=== PATIENT | male | born 1985 | race Caucasian/White ===

== ENCOUNTER 2018-05-17 15:17 | Emergency (ER) | payer SELFPAY ==
[~2018-05-17] VITALS: Ht 165.1 cm; Wt 81.8 kg
[2018-05-17 15:23] VITALS: Ht 165.1 cm; Wt 81.8 kg
[2018-05-17] MEDS ORDERED: ONDANSETRON 4 MG INJ ONE (15:52)
[2018-05-17] MEDS ORDERED: SOD CHLORIDE 0.9% 1,000 ML IV STA (15:55)
[2018-05-17] MEDS ORDERED: ONDANSETRON 4 MG INJ IV STA (15:55)
--- NOTE | 2018-05-17 17:20 | ERD ---
ER Documentation Chief Complaint Chief Complaint new onset seizure; witnessed ~1 minute HPI 33-year-old male brought in by ambulance from his work after he had a witnessed 1 minute episode of seizure-like activity. Patient states that he does remember feeling lightheaded and went to the restroom at work. When he walked out, he st arted to pass out and was reportedly assisted to the ground. He had seizure- like activity lasting about 1 minute after which he was confused and seemed to be postictal per report. Patient is currently able to answer questions and states that he has no history of seizures. He does complain of jaw pain currently and states that he has had dislocation of his jaw in the past due to yawning. Currently complains of bilateral jaw pain so history is somewhat limited. He denies any headache, vision disturbance, focal weakness or numbness, recent illness, fevers or chills. He does complain of nausea with vomiting at this time. ROS All systems reviewed and are negative except as per history of present illness. Allergies Allergies: Coded Allergies: No Known Allergy (Unverified , 05/17/18) PMhx/Soc Medical and Surgical Hx: pt denies Medical Hx, pt denies Surgical Hx History of Surgery: No Anesthesia Reaction: No Hx Neurological Disorder: No Hx Respiratory Disorders: No Hx Cardiac Disorders: No Hx Psychiatric Problems: No Hx Miscellaneous Medical Probl: No Hx Alcohol Use: Yes (2-3x wk) Hx Substance Use: Yes (marijuana) Hx Tobacco Use: No Smoking Status: Never smoker FmHx No history of seizure disorder in the family Family History: No diabetes Physical Exam Vitals Vital Signs Date Temp Pulse Resp B/P (MAP) Pulse Ox O2 O2 Flow FiO2 Time Delivery Rate 05/17/18 98.0 71 17 127/80 100 Room Air 21:02 (96) 05/17/18 77 16 120/79 100 Nasal 3.0 19:30 (93) Cannula 05/17/18 74 16 128/87 100 Nasal 3.0 19:27 (101) Cannula 05/17/18 100 3.0 19:25 05/17/18 98.0 60 19 121/76 100 Room Air 19:20 (91) 05/17/18 56 18 129/69 100 Room Air 18:00 (89) 05/17/18 98.4 105 22 141/91 100 15:23 (108) 05/17/18 88 18 148/86 98 Room Air 15:20 (106) Physical Exam Const: Actively retching and vomiting. Nontoxic, alert and awake Head: Atraumatic Eyes: Normal Conjunctiva, PERRLA, EOMI ENT: Normal External Ears, Nose and Mouth. Mouth is slightly open with tenderness over the TMJs bilaterally. Unable to close jaw. Neck: Full range of motion. No meningismus. Resp: Clear to auscultation bilaterally Cardio: Regular rate and rhythm, no murmurs Abd: Soft, non tender, non distended. Normal bowel sounds Skin: No petechiae or rashes Back: No midline or flank tenderness Ext: No cyanosis, or edema Neur: Awake and alert, no facial asymmetry, oriented x3, strength and sensations intact in all 4 extremities Psych: Normal Mood and Affect Result Diagram: 05/17/18 1600 05/17/182016 Results 24 hrs Laboratory Tests Test 05/17/18 16:00 05/17/18 16:52 05/17/18 20:17 White Blood Count 11.2 10^3/ul Red Blood Count 5.47 10^6/ul Hemoglobin 15.9 g/dl Hematocrit 46.8 % Mean Corpuscular Volume 85.6 fl Mean Corpuscular Hemoglobin 29.1 pg Mean Corpuscular 34.0 g/dl Hemoglobin Concent Red Cell Distribution Width 13.3 % Platelet Count 415 10^3/UL Mean Platelet Volume 9.4 fl Immature Granulocytes % 1.700 % Neutrophils % 59.7 % Lymphocytes % 31.7 % Monocytes % 5.8 % Eosinophils % 0.4 % Basophils % 0.7 % Nucleated Red Blood Cells % 0.0 /100WBC Immature Granulocytes # 0.190 10^3/ul Neutrophils # 6.7 10^3/ul Lymphocytes # 3.6 10^3/ul Monocytes # 0.7 10^3/ul Eosinophils # 0.1 10^3/ul Basophils # 0.1 10^3/ul Nucleated Red Blood Cells # 0.0 10^3/ul Sodium Level 141 mmol/L 142 mmol/L Potassium Level 3.9 mmol/L 4.1 mmol/L Chloride Level 107 mmol/L 109 mmol/L Carbon Dioxide Level 12 mmol/L 22 mmol/L Anion Gap 22 11 Blood Urea Nitrogen 10 mg/dl 10 mg/dl Creatinine 0.94 mg/dl 0.85 mg/dl Est Glomerular Filtrat Rate mL/min > 60 mL/min > 60 mL/min Glucose Level 213 mg/dl 112 mg/dl Calcium Level 9.8 mg/dl 9.2 mg/dl Ethyl Alcohol Level < 10.0 mg/dl Bedside Glucose 135 mg/dL Current Medications Medications Dose Sig/Lauren Start Time Status Last (Trade) Ordered Route PRN Stop Time Admin Dose Reason Admin Ondansetron 4 mg STK-MED 05/17/18 DC HCl (Zofran ONCE .ROUTE 15:52 Inj) 05/17/18 15:53 Sodium 1,000 ml @ Q1H STAT 05/17/18 DC 05/17/18 Chloride 1,000 mls/hr IV 15:55 16:01 05/17/18 16:54 Ondansetron 4 mg ONCE STAT 05/17/18 DC 05/17/18 HCl (Zofran IV 15:55 15:59 Inj) 05/17/18 15:56 Fentanyl 50 mcg ONCE ONCE 05/17/18 DC 05/17/18 (Sublimaze) IV 19:00 19:11 05/17/18 19:04 Propofol 80 mg ONCE ONCE 05/17/18 DC 05/17/18 (Diprivan) IV 19:00 19:26 05/17/18 19:07 Procedures/MDM EMERGENT LABS AND DIAGNOSTIC STUDIES: Lab Results above were reviewed and interpreted by me. CBC: no anemia or evidence of infection CMP: No evidence of electrolyte abnormality, renal failure, hypoglycemia Ethanol negative 12-lead EKG was interpreted by Chloe Jean MD: Normal Sinus Rhythm with sinus arrhythmia Normal axis Normal intervals Benign early repolarization No arrhythmia. No acute ST or T wave changes suggestive of acute ischemia or STEMI. Radiology Results as interpreted by Radiology below were reviewed by Shreya Jean MD: CT head shows no acute abnormalities other than evidence of bilateral temporomandibular joint dislocation Chest x-ray shows no acute abnormalities Initial Nursing notes reviewed. Previous Medical Records requested via the Electronic Health Record. EMERGENCY DEPARTMENT COURSE / MEDICAL DECISION MAKING: Temporomandibular Reduction by me: Anesthesia: Sedation with propofol and fentanyl Location: Bilateral TMJ Technique: Placed in seated position . Downward pressure applied with thumbs intraorally lateral to molars. Applied downward then backward pressure Results: [facility] of normal anatomic positioning with normal hjaw opening and closing Procedural Sedation: Pre-assessment performed. See preceding complete history and physical for details. Time out performed. See sedation documentation for details. Risk, benefits and alternatives were discussed with the patient. Medication(s): Propofol, fentanyl Complications: No hypoxic or apneic events Recovered without incident. A minimum of 16 minutes of face to face time was performed including preparation, sedation and recovery time. MDM Patient is presenting after seizure-like activity with possible new onset seizures. He is hemodynamically stable and neurologically intact. He did have multiple episodes of vomiting here for which he was given Zofran. Full workup was done including labs and CT of his head. Exam was consistent with bilateral jaw dislocation. CT head did not show any acute intracranial abnormalities but did note the bilateral temporomandibular joint dislocation. Labs did not show any significant abnormalities. The patient was sedated and had reduction of his TMJ dislocation with improvement of his symptoms. He was observed in the ER for several hours without any recurrent seizure-like activity. I discussed with the patient the importance of following up with a neurologist for further seizure workup. He was informed that he is unable to drive until he is cleared by neurologist. Patient and family understand discharge plan. Patient will be staying with his family. Strict return precautions were discussed. All questions were answered. Patient's blood pressure was elevated (>120/80) but appears stable without evidence of hypertensive emergency or urgency. The patient was counseled about the risks of hypertension and urged to pursue outpatient monitoring and therapy within a week with their primary care physician. Departure Diagnosis: Primary Impression: First time seizure Additional Impression: Dislocation of both temporomandibular joints Encounter type: initial encounter Qualified Codes: S03.03XA - Dislocation of jaw, bilateral, initial encounter Condition: Stable EKMEKDOMO RODRIGEZ MD May 17, 2018 17:20
[2018-05-17] MEDS ORDERED: PROPOFOL 200 MG INJ IV ONE (19:00)
[2018-05-17] MEDS ORDERED: FENTAnyl 50 MCG/ML VIAL IV ONE (19:00)
[2018-05-17 21:02] VITALS: BP 127/80; PULSE 71; RESP 17
== END 2018-05-17 21:06 | disposition home or self-care (01) ==
LOC: E/R 15:17
DX: G40.909 Epilepsy, unspecified, not intractable, without status epilepticus (principal); S03.03XA Dislocation of jaw, bilateral, initial encounter; X58.XXXA Exposure to other specified factors, initial encounter; Y92.89 Other specified places as the place of occurrence of the external cause
CPT/HCPCS: 21480; 36415; 70450; 71045; 80048; 80307; 82962; 85025; 93005; 94770; 96374; 99285; J2405; J3010; J7030